=== PATIENT | female | born 1990 | race Caucasian/White ===

== ENCOUNTER 2025-01-08 13:15 | Outpatient (RCR) | payer MEDICAID, SELFPAY ==
[2024-12-25 08:28] VITALS: BP 146/84; PULSE 92; RESP 18; TEMP 36.6; BMI 56.1
--- NOTE | 2024-12-25 11:33 | PCM.WC.HP ---
History of Present Illness Date of Service: 12/25/24 Chief Complaint: Left Breast Abscess History of Wound: Ms. Singletary is a 34-year-old who presents to the wound center due to left breast abscess status post I&D. She reports a recurrence that has been ongoing for at least 3 years. Has never really sought care for it but because this episode seemed really bad, she presented to the emergency room where she had an I&D a few days ago. Following I&D, dressing changes and an antibiotic was recommended. She states that she is unable to do the dressing changes and has no one to really help her with it. History of diabetes mellitus type 2, poor control. Recent A1c was about 8.5 and prior to this, her A1c was over 9. As above, has not sought care for recurrent abscess, blames recurrence on cystic acne. Due to concern for prior significant wound breakdown, poorly controlled diabetes and consider with care at home, she was referred here by her PCP. [facility] Medical History (Updated 12/25/24 @ 11:[address] Violeta Colorado MD) Cystic acne Morbid obesity Surgical wound, non healing Type 2 diabetes mellitus Left breast abscess Home Medications ?Medication ?Instructions ?Recorded ?Last Taken ?Type atorvastatin 20 mg tablet 20 mg PO DAILY 12/25/24 Unknown History cariprazine 3 mg capsule (Vraylar) 3 mg PO DAILY 12/25/24 Unknown History cephalexin 500 mg capsule 500 mg PO 4X/DAY 12/25/24 Unknown History dulaglutide 0.75 mg/0.5 mL 0.75 mg subcut QWEEK 12/25/24 Unknown History subcutaneous pen injector (Trulicity) dulaglutide 1.5 mg/0.5 mL 1.5 mg subcut QWEEK 12/25/24 Unknown History subcutaneous pen injector (Trulicity) dulaglutide 3 mg/0.5 mL 3 mg subcut QWEEK 12/25/24 Unknown History subcutaneous pen injector (Trulicity) insulin glargine 100 unit/mL (3 30 unit subcut QHS 12/25/24 Unknown History mL) subcutaneous pen (Lantus Solostar U-100 Insulin) losartan 100 mg tablet 100 mg PO DAILY 12/25/24 Unknown History metformin 500 mg tablet,extended 1,000 mg PO BID 12/25/24 Unknown History release 24 hr mupirocin 2 % topical ointment 1 applic topical TID 12/25/24 Unknown History omeprazole 40 mg capsule,delayed 40 mg PO DAILY 12/25/24 Unknown History release pantoprazole 40 mg tablet,delayed 40 mg PO BID 12/25/24 Unknown History release sulfamethoxazole 800 2 tab PO Q12.TCU 12/25/24 Unknown History mg-trimethoprim 160 mg tablet Allergy/AdvReac Type Severity Reaction Status Date / Time cephalexin (From Keflex) Allergy Mild Nausea Verified 12/25/24 09:24 duloxetine (From Cymbalta) AdvReac Severe suicidal Verified 12/25/24 08:26 Surgical History (Updated 12/25/24 @ 11:[address] Violeta Colorado MD) Status post incision and drainage ROS Constitutional Constitutional: Denies excessive sweating, fatigue, fever(s), frequent falls, headache(s), lethargy or night sweats Eyes Eyes: Denies bloody eye, discharge from eye(s), double vision, erythema, excessive blinking, exophthalmos or eye pain ENT HEENT: Denies disequillibrium, dysphagia, foreign body in nose, halitosis, headache(s) or hearing loss Cardiovascular Cardiovascular: Denies cold extremities, cyanosis, diaphoresis, dizziness, dyspnea or dyspnea at rest Respiratory/Chest Respiratory/Chest: Denies chest congestion, chest tightness, difficulty clearing secretions, dry cough, dusky skin, dyspnea, hemoptysis or hoarseness Gastrointestinal Gastrointestinal: Denies chewing difficulty, coffee ground emesis, dry heaves, dysphagia or hematemesis Genitourinary Genitourinary: Denies abdominal discomfort, anuria or flank pain Musculoskeletal Musculoskeletal: Denies back pain, extremity pain, muscle cramps, muscle spasms, tingling or tremors Integumentary Integumentary: Reports erythema and wounds; Denies hirsutism, jaundice, pruritus or skin swelling Neurologic Neurologic: Denies abnormal movements, behavior changes, burning sensations, disequilibrium, dizziness, focal weakness or frequent falls Psychiatric Psychiatric: Denies auditory hallucinations, behavioral changes, hallucinations, hopelessness, irritability, memory loss, tactile hallucinations or visual hallucinations Endocrine Endocrinology: Denies change in body appearance, deepening of the voice, excessive sweating, flushing or heat intolerance Hematologic/Lymphatic Hematologic/Lymphatic: Denies easy bleeding or easy bruising Allergic/Immunologic Allergic/Immunologic: Denies itchy eyes, lip swelling, throat swelling, tongue swelling, hives or wheezing Vital Signs Vital Signs Vital Signs: 12/25/24 08:28 Temperature 97.9 F Temperature Source Temporal Pulse Rate 92 Respiratory Rate 18 Blood Pressure 146/84 H Blood Pressure Mean 104 Blood Pressure Source Monitor Blood Pressure Position Sitting Blood Pressure Location Right Arm Oxygen Delivery Method Room Air Weight Weight: 380 lb Body Mass Index (BMI) 56.1 Physical Exam Const alert, oriented x3 and no apparent distress General Appearance: cooperative and well kempt HEENT normocephalic, head/scalp atraumatic and hearing grossly normal bilaterally Eyes EOMs intact bilaterally General Eye: normal appearance of both eyes Neck General: normal visual inspection Resp normal respiratory effort and normal air movement Effort and Inspection: able to speak in complete sentences Cardio regular rate, regular rhythm, S1 normal heart sound and S2 normal heart sound GI soft to palpation and non-tender Inspection: central obesity Skin Wounds: wounds noted size Size: See clinical note, bed granulating well, margins, no odor, open and surrounding erythema Debridement Note Debridement Note Wound debrided: Left Breast Type of Debridement: Excisional debridement Anesthesia Used: 5% Lidocaine Gel Depth: Down to and including healthy tissue and in the subcutaneous layer Percentage of wound debrided: 100 Instrument Used: 3mm curette Tissue Removed: Devitalized tissue Severity: Fat Layer Exposed Amount of bleeding with debridement: Mild Bleeding Controlled with: Pressure Patient tolerated procedure: Patient tolerated procedure well Post-Debridement Measurements and Additional Note: Post-Debridement Measurements/Treatment - Nurse 1 - General Ulcer Assessment Start: 12/25/24 08:20 Freq: Status: Active Protocol: MEMO Activity Type Activity Date Activity User E-sign Co-sign Detail Recorded Client Recorded Date Recorded By Document 12/25/24 08:28 DS [id number] 12/25/24 08:32 DS 12/25/24 08:28 - Today's Visit Information Type of service Initial Visit Arrival Mode Ambulatory Height and Weight Height 5 ft 9 in Weight 380 lb Weight in Pounds 380.0 lbs Weight Measurement Method Estimated by Patient Body Mass Index (BMI) 56.1 BMI Classification Obese Vital Signs Temperature (97.8 F-99.1 F) 97.9 F Temperature Source Temporal Pulse Rate (60-100) 92 Pulse Location Monitor Respiratory Rate (12-18) 18 Respiratory rate source Observation Oxygen Delivery Method Room Air Blood Pressure (90/60-120/80) 146/84 H Blood Pressure Mean 104 Source Monitor Position Sitting Blood Pressure Location Right Arm Pain Scale: 0-10 Numeric Is Patient Pain Free? No left breast -Description Burning -Intensity 6 -Duration (hours) Chronic -Pain Behavior Thrashing -Alleviating Factors/Interventions Will continue to monitor, Emotional Support Communication Assessment Preferred language [employer] Underwriting Consultant Required No Able to Read Yes Able to Write Yes Right Hearing Abillity Normal Left Hearing Abillity Normal Visual Assistive Devices Glasses Teaching Assessment Preferences Verbal,Written, Demonstration Barriers to Learning None Readiness To Learn Excellent Willingness to Engage in Self Management High Activies Readiness to Engage in Self Management High Activities Anxiety Level Anxious Cooperation Cooperative Perception Coherent Interest in Health Problem Asks Questions Education Importance Acknowledges Need Does Patient Smoke tobacco or other Yes substances Is Patient Diabetic Yes Functional Assessment Recent Decline in Ability to Perform Denies Any Declines Culture/Yarsani/Toll Collector Cultural/Yarsani Needs that may affect No Treatment Plan Teaching: Wound Center *Welcome to the Wound Center -Person Taught Patient -Teaching Method Discussion -Response to teaching Verbalize Understanding - Nurse 1 - General Ulcer Measurement Start: 12/25/24 08:20 Freq: Status: Active Protocol: Activity Type Activity Date Activity User E-sign Co-sign Detail Recorded Client Recorded Date Recorded By Document 12/25/24 08:32 DS [id number] 12/25/24 08:44 DS 12/25/24 08:32 Wound Center Nurse 1 #1 left med breast -Current Size (cm) - Length 0.4 -Current Size (cm) - Width 1.0 -Current Size (cm) - Depth 2.6 -Total Square Cm 0.40 -Date of Last Picture (Recall this 12/25/24 field) -Photo Taken Yes -Tunneling No -Undermining/Tunneling No -Circular Undermining No -Exudate Amt Small -Exudate Type Serosanguineous -Wound Margin Distinct, Outline Attached -Texture (Anjana-wound Skin Appearance) Assessed -Moisture (Anjana-wound Skin Appearance) Assessed -Color (Anjana-wound Skin Appearance) Assessed -Temperature (Anjana-wound Skin No Abnormality Appearance) (Pt Warm) -Tenderness on Palpation (Anjana-wound No Skin Appearance) -Ulcer Cleansing Soap and Water -Foul Odor after Cleansing No -Anesthetic Used 5% Lidocaine Gel - Nurse 2 - General Ulcer CM Notes Start: 12/25/24 08:20 Freq: Status: Active Protocol: Activity Type Activity Date Activity User E-sign Co-sign Detail Recorded Client Recorded Date Recorded By Document 12/25/24 09:09 [id number] 12/25/24 09:16 12/25/24 09:09 Wound Center Nurse 2 -Time 09:09 -Correct Patient Yes -Correct Side, Site, Position Yes -Correct Procedure Yes -Procedure Performed Yes -Type of Procedure Debridement -Clinical Debridement Subcutaneous -Tissue Removed Subcutaneous -Post Debridement (cm) - Length 0.3 -Post Debridement (cm) - Width 1.2 -Post Debridement (cm) - Depth 3.0 -Total Square (Post) (cm) 0.36 -Area of Debridement (cm) - Length 0.3 -Area of Debridement (cm) - Width 1.2 -Total Square (Area) (cm) 0.36 -Tunneling No -Undermining/Tunneling No -Circular Undermining No -Wound/Ulcer Outcome Not Healed -Ulcer Cleansing Rinsed/ Irrigated with Saline -Foul Odor after Cleansing No -Bioengineered Tissue No -Bleeding Controlled with Pressure -Treatment Response Procedure Tolerated Well -Offloading No -Debridement - Subq, 1st 20sq cm Yes Pain Scale: 0-10 Numeric Is Patient Pain Free? Yes - Nurse 3 - General Ulcer D/C NN Start: 12/25/24 08:20 Freq: Status: Active Protocol: Activity Type Activity Date Activity User E-sign Co-sign Detail Recorded Client Recorded Date Recorded By Document 12/25/24 09:40 [id number] 12/25/24 09:41 12/25/24 09:40 Wound Care Center Nurse 3 #1 left med breast -Ulcer Cleansing Rinsed/ Irrigated with Saline -Primary Dressing Applied Nugauze, Iodoform 1in -Primary Dressing Covered/Secured with Dry Gauze, Secured with Tape -Nugauze, Iodoform 1in 1 Treatment Response Procedure Tolerated Well Pain Scale: 0-10 Numeric Is Patient Pain Free? Yes WC - Visit Discharge Discharge Condition Stable Ambulatory Status Ambulatory Transportation Private Auto Medication Reconcilliation completed & No provided to patient/care provider Clinical Summary of Care Provided Yes Charges/Coding Visit Charges Office Visits / Consults: [id number] OV L3 New 30min Procedures Integumentary [id number]: [id number] Gladys subq tissue 20 sq cm/< Assessment/Plan Assessment/Plan (1) Status post incision and drainage: CODE(S): Z98.890 - Other specified postprocedural states (2) Left breast abscess: CODE(S): N61.1 - Abscess of the breast and nipple (3) Type 2 diabetes mellitus: CODE(S): E11.9 - Type 2 diabetes mellitus without complications (4) Surgical wound, non healing: CODE(S): T81.89XA - Other complications of procedures, not elsewhere classified, initial encounter (5) Morbid obesity: CODE(S): E66.01 - Morbid (severe) obesity due to excess calories (6) Cystic acne: CODE(S): L70.0 - Acne vulgaris PLAN: Plan Debridement done as documented above, procedure was well-tolerated. Status post recent I&D at the emergency room. Had packing to the area and antibiotics prescribed however, she states that she did not do any dressing change at home because she is unable to. History of significant surgical wound breakdown/abscess following a section a few years ago. Had to have a wound VAC. Due to her comorbidities, poorly controlled diabetes and recurrence, primary care recommended wound care. She states that she is working on her diabetes control. Not homebound. For now, iodoform daily to twice daily depending on drainage, cover with foam dressing. Due to depth, difficulty with wound changes and drainage, I believe she would benefit from a wound VAC. Application started. Optimal diabetes control strongly recommended. Due to recurrence, I believe she would benefit from evaluation by general surgery or plastic surgery, she was advised to speak with a primary care physician. She voiced understanding. Optimize protein intake also discussed. Her questions were answered and she was advised to let us know if she had any further questions or concerns. Follow-up in a week or sooner if needed. This note was generated with [employer] software. It may contain incorrect words, spelling, and punctuation that were not noted in checking the note before signing.
--- NOTE | 2024-12-26 08:20 | WC ---
PHOTO 12/25/24 LEFT BREAST
[2025-01-01 10:59] VITALS: BP 143/86; PULSE 84; RESP 18; TEMP 36.1; BMI 56.1
--- NOTE | 2025-01-01 13:42 | PCM.WC.PN ---
History of Present Illness Date of Service: 01/01/25 Chief Complaint: Left Breast Abscess History of Wound: Ms. Singletary is a 34-year-old who presents to the wound center due to left breast abscess status post I&D. She reports a recurrence that has been ongoing for at least 3 years. Has never really sought care for it but because this episode seemed really bad, she presented to the emergency room where she had an I&D a few days ago. Following I&D, dressing changes and an antibiotic was recommended. She states that she is unable to do the dressing changes and has no one to really help her with it. History of diabetes mellitus type 2, poor control. Recent A1c was about 8.5 and prior to this, her A1c was over 9. As above, has not sought care for recurrent abscess, blames recurrence on cystic acne. Due to concern for prior significant wound breakdown, poorly controlled diabetes and consider with care at home, she was referred here by her PCP. Progress of Wound: No acute concerns reported at this time. Since her last visit, she states that her mother has been helping with dressing changes daily. Her mother states that she is needing less to pack the area. Patient states that she has significantly increased her protein intake and has been working to better control her blood glucose readings. Average readings have been down 100 points since her last visit. Objective Data Objective Data Vital Signs: Vital Signs Temp Pulse Resp BP O2 Del Method 97 F L 84 18 143/86 H Room Air 01/01/25 10:59 01/01/25 10:59 01/01/25 10:59 01/01/25 10:59 01/01/25 10:59 Oxygen Delivery Method Room Air Weight: 380 lb Body Mass Index (BMI) 56.1 Charges/Coding Procedures Integumentary 111xxx-113xx: [id number] Gladys subq tissue 20 sq cm/< Physical Exam Const alert, oriented x3 and no apparent distress General Appearance: cooperative and well kempt HEENT normocephalic, head/scalp atraumatic and hearing grossly normal bilaterally Eyes EOMs intact bilaterally General Eye: normal appearance of both eyes Neck General: normal visual inspection Resp normal respiratory effort Effort and Inspection: able to speak in complete sentences GI Inspection: central obesity Skin Wounds: wounds noted size Size: See clinical note, bed granulating well, margins, no odor, open and surrounding erythema Debridement Note Debridement Note Wound debrided: Left breast Type of Debridement: Excisional debridement Anesthesia Used: 4% Lidocaine Solution Depth: Down to and including healthy tissue and in the subcutaneous layer Percentage of wound debrided: 100 Instrument Used: 3mm curette Tissue Removed: Devitalized tissue Severity: Fat Layer Exposed Amount of bleeding with debridement: Mild Bleeding Controlled with: Pressure Patient tolerated procedure: Patient tolerated procedure well Post-Debridement Measurements and Additional Note: Post-Debridement Measurements/Treatment WC - Nurse 1 - General Ulcer Assessment Start: 12/25/24 08:20 Freq: Status: Active Protocol: MEMO Activity Type Activity Date Activity User E-sign Co-sign Detail Recorded Client Recorded Date Recorded By Document 12/25/24 08:28 DS [id number] 12/25/24 08:32 DS Document 01/01/25 10:59 OH [id number] 01/01/25 11:13 MT 12/25/24 01/01/25 08:28 10:59 - Today's Visit Information Type of service Initial Visit Follow-up Visit (Physician/[employer] ) Arrival Mode Ambulatory Ambulatory Accompanied by mom Patient Identification Verified (Name & Yes ) Safety Precautions Fall Prevention Blood Sugar Stated by Patient Height and Weight Height 5 ft 9 in Weight 380 lb Weight in Pounds 380.0 lbs Weight Measurement Method Estimated by Patient Body Mass Index (BMI) 56.1 56.1 BMI Classification Obese Obese Vital Signs Temperature (97.8 F-99.1 F) 97.9 F 97 F L Temperature Source Temporal Temporal Pulse Rate (60-100) 92 84 Pulse Location Monitor Monitor Respiratory Rate (12-18) 18 18 Respiratory rate source Observation Observation Oxygen Delivery Method Room Air Room Air Blood Pressure (90/60-120/80) 146/84 H 143/86 H Blood Pressure Mean (mm Hg) 104 105 Source Monitor Monitor Position Sitting Sitting Blood Pressure Location Right Arm Right Arm History Since Last Visit- (Skip if this is Patient's initial visit) Has dressing in place as prescribed Yes Has compression in place as prescribed Yes Has offloadiing in place as prescribed Yes Experienced any changes in pain level or Yes management Left Footwear Regular Shoe Right Footwear Regular Shoe Pain Scale: 0-10 Numeric Is Patient Pain Free? No Yes left breast -Description Burning -Intensity 6 -Duration (hours) Chronic -Pain Behavior Thrashing -Alleviating Factors/Interventions Will continue to monitor, Emotional Support Communication Assessment Preferred language Lithuanian Senior Security Engineer Required No Able to Read Yes Able to Write Yes Right Hearing Abillity Normal Left Hearing Abillity Normal Visual Assistive Devices Glasses Teaching Assessment Preferences Verbal,Written, Demonstration Barriers to Learning None Readiness To Learn Excellent Willingness to Engage in Self Management High Activies Readiness to Engage in Self Management High Activities Anxiety Level Anxious Cooperation Cooperative Perception Coherent Interest in Health Problem Asks Questions Education Importance Acknowledges Need Does Patient Smoke tobacco or other Yes substances Is Patient Diabetic Yes Functional Assessment Recent Decline in Ability to Perform Denies Any Declines Culture/Catholic/Correctional Casework Specialist Cultural/Catholic Needs that may affect No Treatment Plan Teaching: Wound Center *Welcome to the Wound Center -Person Taught Patient -Teaching Method Discussion -Response to teaching Verbalize Understanding WC - Nurse 1 - General Ulcer Measurement Start: 12/25/24 08:20 Freq: Status: Active Protocol: Activity Type Activity Date Activity User E-sign Co-sign Detail Recorded Client Recorded Date Recorded By Document 12/25/24 08:32 DS [id number] 12/25/24 08:44 DS Document 01/01/25 10:59 OH [id number] 01/01/25 11:13 OH 12/25/24 01/01/25 08:32 10:59 Wound Center Nurse 1 #1 left med breast -Current Size (cm) - Length 0.4 0.3 -Current Size (cm) - Width 1.0 0.5 -Current Size (cm) - Depth 2.6 2.2 -Total Square Cm 0.40 0.15 -Date of Last Picture (Recall this 12/25/24 field) -Photo Taken Yes No -Tunneling No No -Undermining/Tunneling No No -Circular Undermining No No -Exudate Amt Small Medium -Exudate Type Serosanguineous Sanguineous -Wound Margin Distinct, Flat & Intact Outline Attached -Granulation Amt Large (67-100%) -Granulation Quality Red -Slough/Fibrin No -Texture (Anjana-wound Skin Appearance) Assessed Assessed -Moisture (Anjana-wound Skin Appearance) Assessed Assessed -Color (Anjana-wound Skin Appearance) Assessed Assessed -Temperature (Anjana-wound Skin No Abnormality No Abnormality Appearance) (Pt Warm) (Pt Warm) -Tenderness on Palpation (Anjana-wound No No Skin Appearance) -Ulcer Cleansing Soap and Water Soap and Water -Foul Odor after Cleansing No No -Anesthetic Used 5% Lidocaine 5% Lidocaine Gel Gel Lower Limb Edema Present NA WC - Nurse 2 - General Ulcer CM Notes Start: 12/25/24 08:20 Freq: Status: Active Protocol: Activity Type Activity Date Activity User E-sign Co-sign Detail Recorded Client Recorded Date Recorded By Document 12/25/24 09:09 GM [id number] 12/25/24 09:16 GM Document 01/01/25 12:08 GM [id number] 01/01/25 12:10 GM Edit Result 01/01/25 12:08 GM (1) [id number] 01/01/25 12:13 GM (1) #1 left med breast - Post Debridement (cm) - Length => 0.2 - Post Debridement (cm) - Width => 0.7 - Post Debridement (cm) - Depth => 2.0 - Total Square (Post) (cm) => 0.14 - Area of Debridement (cm) - Length => 0.2 - Area of Debridement (cm) - Width => 0.7 - Total Square (Area) (cm) => 0.14 12/25/24 01/01/25 09:09 12:08 Wound Center Nurse 2 #1 left med breast -Time 09:09 12:08 -Correct Patient Yes Yes -Correct Side, Site, Position Yes Yes -Correct Procedure Yes Yes -Procedure Performed Yes Yes -Type of Procedure Debridement Debridement -Clinical Debridement Subcutaneous Subcutaneous -Tissue Removed Subcutaneous Subcutaneous -Post Debridement (cm) - Length 0.3 0.2 -Post Debridement (cm) - Width 1.2 0.7 -Post Debridement (cm) - Depth 3.0 2.0 -Total Square (Post) (cm) 0.36 0.14 -Area of Debridement (cm) - Length 0.3 0.2 -Area of Debridement (cm) - Width 1.2 0.7 -Total Square (Area) (cm) 0.36 0.14 -Tunneling No No -Undermining/Tunneling No No -Circular Undermining No No -Wound/Ulcer Outcome Not Healed Not Healed -Ulcer Cleansing Rinsed/ Rinsed/ Irrigated with Irrigated with Saline Saline -Foul Odor after Cleansing No No -Bioengineered Tissue No No -Bleeding Controlled with Pressure Pressure -Treatment Response Procedure Procedure Tolerated Well Tolerated Well -Offloading No No -Debridement - Subq, 1st 20sq cm Yes Yes Pain Scale: 0-10 Numeric Is Patient Pain Free? Yes Yes WC - Nurse 3 - General Ulcer D/C NN Start: 12/25/24 08:20 Freq: Status: Active Protocol: Activity Type Activity Date Activity User E-sign Co-sign Detail Recorded Client Recorded Date Recorded By Document 12/25/24 09:40 RB [id number] 12/25/24 09:41 RB Document 01/01/25 13:40 KW [id number] 01/01/25 13:41 KW 12/25/24 01/01/25 09:40 13:40 Wound Care Center Nurse 3 #1 left med breast -Ulcer Cleansing Rinsed/ Irrigated with Saline -Negative Pressure Wound Therapy Start -Pieces of Black Foam Inserted 1 -NPWT Application Charge NPWT & Debridement (nc ) -Foam Supply Charges Black Foam Small -Black Foam, Small 1 -Setting (mmHg) 125 -Negative Pressure is Continuous -Primary Dressing Applied Nugauze, Iodoform 1in -Primary Dressing Covered/Secured with Dry Gauze, Secured with Tape -Nugauze, Iodoform 1in 1 Treatment Response Procedure Tolerated Well Pain Scale: 0-10 Numeric Is Patient Pain Free? Yes Yes WC - Visit Discharge Discharge Condition Stable Stable Ambulatory Status Ambulatory Ambulatory Transportation Private Auto Private Auto Medication Reconcilliation completed & No No provided to patient/care provider Clinical Summary of Care Provided Yes Yes Assessment/Plan Assessment/Plan (1) Status post incision and drainage: CODE(S): Z98.890 - Other specified postprocedural states (2) Left breast abscess: CODE(S): N61.1 - Abscess of the breast and nipple (3) Type 2 diabetes mellitus: CODE(S): E11.9 - Type 2 diabetes mellitus without complications (4) Surgical wound, non healing: CODE(S): T81.89XA - Other complications of procedures, not elsewhere classified, initial encounter (5) Morbid obesity: CODE(S): E66.01 - Morbid (severe) obesity due to excess calories (6) Cystic acne: CODE(S): L70.0 - Acne vulgaris PLAN: Plan Debridement done as documented above, procedure was well-tolerated. Good improvement noted since her last visit. Has been doing iodoform packing/changing daily with the help of her mother. Wound VAC now available and due to her prior difficulty with wound healing/breakdown and good success with a wound VAC, she would like to have the wound VAC applied despite good healing in the last week. Okay to attempt. Start at 125 mmHg. Continue optimal diabetes control and adequate protein intake. Her questions were answered and she was advised to let us know if she had any further questions or concerns. Follow-up in a week for courtesy visit and in 2 weeks with me This note was generated with [employer] dictation software. It may contain incorrect words, spelling, and punctuation that were not noted in checking the note before signing.
[2025-01-05 13:26] VITALS: BP 143/91; PULSE 94; RESP 18; TEMP 36.4; BMI 56.1
[2025-01-08 13:23] VITALS: BP 127/86; PULSE 91; TEMP 36.5; BMI 56.1
--- NOTE | 2025-01-08 14:22 | PN.PCM_ITS ---
History of Present Illness Date of Service: 01/08/25 Chief Complaint: Left Breast Abscess History of Wound: Ms. Singletary is a 34-year-old who presents to the wound center due to left breast abscess status post I&D. She reports a recurrence that has been ongoing for at least 3 years. Has never really sought care for it but because this episode seemed really bad, she presented to the emergency room where she had an I&D a few days ago. Following I&D, dressing changes and an antibiotic was recommended. She states that she is unable to do the dressing changes and has no one to really help her with it. History of diabetes mellitus type 2, poor control. Recent A1c was about 8.5 and prior to this, her A1c was over 9. As above, has not sought care for recurrent abscess, blames recurrence on cystic acne. Due to concern for prior significant wound breakdown, poorly controlled diabetes and consider with care at home, she was referred here by her PCP. Progress of Wound: I saw patient today as a courtesy visit for Dr. [place]. Carol reports no acute concerns. She had a wound vac placed last Sunday, it was removed this Sunday due to skin irritation from the vac dressing; she reports she had some blistering. The blisters are healing up well. Since the vac was removed she has been back to packing with iodoform. She reports packing has become increasingly difficult, it just falls out. She has continued to maintain improved glycemic control, sugars are now typically mid-100s which is about 100 points less than previous. She also has been very conscientious of increasing protein intake. Objective Data Objective Data Vital Signs: Vital Signs Temp Pulse Resp BP O2 Del Method 97.7 F L 91 18 127/86 H Room Air 01/08/25 13:23 01/08/25 13:23 01/05/25 13:26 01/08/25 13:23 01/05/25 13:26 Oxygen Delivery Method Room Air Weight: 380 lb Body Mass Index (BMI) 56.1 Charges/Coding Visit Charges Office Visits / Consults: 48925 OV L2 New 15min Physical Exam Const alert, oriented x3 and no apparent distress General Appearance: cooperative and well kempt HEENT normocephalic, head/scalp atraumatic and hearing grossly normal bilaterally Eyes EOMs intact bilaterally General Eye: normal appearance of both eyes Neck General: normal visual inspection Resp normal respiratory effort Effort and Inspection: able to speak in complete sentences GI Inspection: central obesity Skin Wounds: wounds noted Wound Narrative: L breast ulceration which is significantly improved in depth, no significant slough or bioburden, wound base is pink; there is no surrounding erythema/warmth/induration/fluctuance/foul odor. Resolving dermatitic changes in the area of the prior vac dressing Debridement Note Debridement Note No debridement was completed: No debridement was completed today Post-Debridement Measurements and Additional Note: Post-Debridement Measurements/Treatment - Nurse 1 - General Ulcer Assessment Start: 12/25/24 08:20 Freq: Status: Active Protocol: WC.[place] Activity Type Activity Date Activity User E-sign Co-sign Detail Recorded Client Recorded Date Recorded By Document 12/25/24 08:28 DS [id number] 12/25/24 08:32 DS Document 01/01/25 10:59 MT [id number] 01/01/25 11:13 MT Document 01/05/25 13:26 KW [id number] 01/05/25 13:56 KW Document 01/08/25 13:23 BMF [id number] 01/08/25 13:32 BMF 12/25/24 01/01/25 01/05/25 08:28 10:59 13:26 - Today's Visit Information Type of service Initial Visit Follow-up Visit Nurse-only (Physician/SENIOR FINANCE MANAGER Visit ) Arrival Mode Ambulatory Ambulatory Ambulatory Transfer Assistance Accompanied by mom Patient Identification Verified (Name & Yes Yes ) Patient Requires Transmission-Based Precautions Safety Precautions Fall Prevention Blood Sugar Stated by Patient Height and Weight Height 5 ft 9 in Weight 380 lb Weight in Pounds 380.0 lbs Weight Measurement Method Estimated by Patient Body Mass Index (BMI) 56.1 56.1 56.1 BMI Classification Obese Obese Obese Vital Signs Temperature (97.8 F-99.1 F) 97.9 F 97 F L 97.5 F L Temperature Source Temporal Temporal Temporal Pulse Rate (60-100) 92 84 94 Pulse Location Monitor Monitor Monitor Respiratory Rate (12-18) 18 18 18 Respiratory rate source Observation Observation Observation Oxygen Delivery Method Room Air Room Air Room Air Blood Pressure (90/60-120/80) 146/84 H 143/86 H 143/91 H Blood Pressure Mean (mm Hg) 104 105 108 Source Monitor Monitor Monitor Position Sitting Sitting Sitting Blood Pressure Location Right Arm Right Arm Left Arm History Since Last Visit- (Skip if this is Patient's initial visit) Have you changed medications since your No last visit? Any new allergies or adverse reactions No Had a fall/change in ADL's that may No increase risk of falls Signs or symptoms of abuse and/or No neglect since last visit Have you been in the hospital since your No last visit? Has dressing in place as prescribed Yes Yes Has compression in place as prescribed Yes N/A Has offloadiing in place as prescribed Yes N/A Experienced any changes in pain level or Yes No management Left Footwear Regular Shoe Regular Shoe Right Footwear Regular Shoe Regular Shoe Pain Scale: 0-10 Numeric Is Patient Pain Free? No Yes Yes left breast -Description Burning -Intensity 6 -Duration (hours) Chronic -Pain Behavior Thrashing -Alleviating Factors/Interventions Will continue to monitor, Emotional Support Communication Assessment Preferred language [place] Site Medical Director Required No Able to Read Yes Able to Write Yes Right Hearing Abillity Normal Left Hearing Abillity Normal Visual Assistive Devices Glasses Teaching Assessment Preferences Verbal,Written, Demonstration Barriers to Learning None Readiness To Learn Excellent Willingness to Engage in Self Management High Activies Readiness to Engage in Self Management High Activities Anxiety Level Anxious Cooperation Cooperative Perception Coherent Interest in Health Problem Asks Questions Education Importance Acknowledges Need Does Patient Smoke tobacco or other Yes substances Is Patient Diabetic Yes Functional Assessment Recent Decline in Ability to Perform Denies Any Declines Culture/Holiness/Advertising Campaign Manager Cultural/Holiness Needs that may affect No Treatment Plan Teaching: Wound Center *Welcome to the Wound Center -Person Taught Patient -Teaching Method Discussion -Response to teaching Verbalize Understanding 01/08/25 13:23 WC - Today's Visit Information Type of service Follow-up Visit (Physician/SENIOR FINANCE MANAGER ) Arrival Mode Ambulatory Transfer Assistance None Accompanied by Patient Identification Verified (Name & Yes ) Patient Requires Transmission-Based No Precautions Safety Precautions Blood Sugar Height and Weight Height Weight Weight in Pounds Weight Measurement Method Body Mass Index (BMI) 56.1 BMI Classification Obese Vital Signs Temperature (97.8 F-99.1 F) 97.7 F L Temperature Source Temporal Pulse Rate (60-100) 91 Pulse Location Monitor Respiratory Rate (12-18) Respiratory rate source Oxygen Delivery Method Blood Pressure (90/60-120/80) 127/86 H Blood Pressure Mean (mm Hg) 99 Source Monitor Position Sitting Blood Pressure Location Right Arm History Since Last Visit- (Skip if this is Patient's initial visit) Have you changed medications since your No last visit? Any new allergies or adverse reactions No Had a fall/change in ADL's that may No increase risk of falls Signs or symptoms of abuse and/or No neglect since last visit Have you been in the hospital since your No last visit? Has dressing in place as prescribed No Has compression in place as prescribed N/A Has offloadiing in place as prescribed N/A Experienced any changes in pain level or No management Left Footwear Regular Shoe Right Footwear Regular Shoe Pain Scale: 0-10 Numeric Is Patient Pain Free? Yes left breast -Description -Intensity -Duration (hours) -Pain Behavior -Alleviating Factors/Interventions Communication Assessment Preferred foreign languages department chair Required Able to Read Able to Write Right Hearing Abillity Left Hearing Abillity Visual Assistive Devices Teaching Assessment Preferences Barriers to Learning Readiness To Learn Willingness to Engage in Self Management Activies Readiness to Engage in Self Management Activities Anxiety Level Cooperation Perception Interest in Health Problem Education Importance Does Patient Smoke tobacco or other substances Is Patient Diabetic Functional Assessment Recent Decline in Ability to Perform Culture/Holiness/Advertising Campaign Manager Cultural/Holiness Needs that may affect Treatment Plan Teaching: Wound Center *Welcome to the Wound Center -Person Taught -Teaching Method -Response to teaching WC - Nurse 1 - General Ulcer Measurement Start: 12/25/24 08:20 Freq: Status: Active Protocol: Activity Type Activity Date Activity User E-sign Co-sign Detail Recorded Client Recorded Date Recorded By Document 12/25/24 08:32 DS [id number] 12/25/24 08:44 DS Document 01/01/25 10:59 OK [id number] 01/01/25 11:13 OK Document 01/08/25 13:23 [facility] [id number] 01/08/25 13:32 [facility] 12/25/24 01/01/25 01/08/25 08:32 10:59 13:23 Wound Center Nurse 1 #1 left med breast -Combined with other wound No -Current Size (cm) - Length 0.4 0.3 0.3 -Current Size (cm) - Width 1.0 0.5 0.3 -Current Size (cm) - Depth 2.6 2.2 0.3 -Total Square Cm 0.40 0.15 0.09 -Date of Last Picture (Recall this 12/25/24 field) -Photo Taken Yes No -Epithelialization Small 1-33% -Tunneling No No No -Undermining/Tunneling No No No -Circular Undermining No No No -Exudate Amt Small Medium Medium -Exudate Type Serosanguineous Sanguineous Serosanguineous -Wound Margin Distinct, Flat & Intact Distinct, Outline Outline Attached Attached -Granulation Amt Large (67-100%) Large (67-100%) -Granulation Quality Red Red -Slough/Fibrin No No -Necrosis Amt None Present (0 %) -Texture (Anjana-wound Skin Appearance) Assessed Assessed Assessed, Scarring -Moisture (Anjana-wound Skin Appearance) Assessed Assessed Assessed -Color (Anjana-wound Skin Appearance) Assessed Assessed Assessed -Temperature (Anjana-wound Skin No Abnormality No Abnormality No Abnormality Appearance) (Pt Warm) (Pt Warm) (Pt Warm) -Tenderness on Palpation (Anjana-wound No No No Skin Appearance) -Ulcer Cleansing Soap and Water Soap and Water Rinsed/ Irrigated with Saline -Foul Odor after Cleansing No No No -Anesthetic Used 5% Lidocaine 5% Lidocaine 5% Lidocaine Gel Gel Gel Lower Limb Edema Present NA WC - Nurse 2 - General Ulcer CM Notes Start: 12/25/24 08:20 Freq: Status: Active Protocol: Activity Type Activity Date Activity User E-sign Co-sign Detail Recorded Client Recorded Date Recorded By Document 12/25/24 09:09 [id number] 12/25/24 09:16 GM Document 01/01/25 12:08 [id number] 01/01/25 12:10 GM Edit Result 01/01/25 12:08 (1) [id number] 01/01/25 12:13 GM Document 01/08/25 13:55 [id number] 01/08/25 14:01 (1) #1 left med breast - Post Debridement (cm) - Length => 0.2 - Post Debridement (cm) - Width => 0.7 - Post Debridement (cm) - Depth => 2.0 - Total Square (Post) (cm) => 0.14 - Area of Debridement (cm) - Length => 0.2 - Area of Debridement (cm) - Width => 0.7 - Total Square (Area) (cm) => 0.14 12/25/24 01/01/2501/08/25 09:09 12:08 13:55 Wound Center Nurse 2 #1 left med breast -Time 09:09 12:08 13:57 -Correct Patient Yes Yes Yes -Correct Side, Site, Position Yes Yes Yes -Correct Procedure Yes Yes No -Procedure Performed Yes Yes No -Type of Procedure Debridement Debridement -Clinical Debridement Subcutaneous Subcutaneous -Tissue Removed Subcutaneous Subcutaneous -Post Debridement (cm) - Length 0.3 0.2 0.3 -Post Debridement (cm) - Width 1.2 0.7 0.4 -Post Debridement (cm) - Depth 3.0 2.0 0.3 -Total Square (Post) (cm) 0.36 0.14 0.12 -Area of Debridement (cm) - Length 0.3 0.2 -Area of Debridement (cm) - Width 1.2 0.7 -Total Square (Area) (cm) 0.36 0.14 -Tunneling No No No -Undermining/Tunneling No No No -Circular Undermining No No No -Wound/Ulcer Outcome Not Healed Not Healed Not Healed -Ulcer Cleansing Rinsed/ Rinsed/ Irrigated with Irrigated with Saline Saline -Foul Odor after Cleansing No No -Bioengineered Tissue No No -Bleeding Controlled with Pressure Pressure NA -Treatment Response Procedure Procedure Tolerated Well Tolerated Well -Offloading No No No -Debridement - Subq, 1st 20sq cm Yes Yes Pain Scale: 0-10 Numeric Is Patient Pain Free? Yes Yes Yes WC - Nurse 3 - General Ulcer D/C NN Start: 12/25/24 08:20 Freq: Status: Active Protocol: Activity Type Activity Date Activity User E-sign Co-sign Detail Recorded Client Recorded Date Recorded By Document 12/25/24 09:40 RB [id number] 12/25/24 09:41 RB Document 01/01/25 13:40 KW [id number] 01/01/25 13:41 KW Document 01/05/25 13:26 KW [id number] 01/05/25 13:56 KW Document 01/08/25 14:10 [facility] [id number] 01/08/25 14:11 [facility] 12/25/24 01/01/25 01/05/25 09:40 13:40 13:26 Wound Care Center Nurse 3 #1 left med breast -Ulcer Cleansing Rinsed/ Soap and Water Irrigated with Saline -Foul Odor after Cleansing -Negative Pressure Wound Therapy Start -Pieces of Black Foam Inserted 1 -NPWT Application Charge NPWT & Debridement (nc ) -Foam Supply Charges Black Foam Small -Black Foam, Small 1 -Setting (mmHg) 125 -Negative Pressure is Continuous -Primary Dressing Applied Nugauze, Nugauze, Iodoform 1in Iodoform 1in -Primary Dressing Covered/Secured with Dry Gauze, Dry Gauze, Secured with Secured with Tape Tape -Nugauze, Iodoform 1in 1 1 -Promogran More Matter -Wound Comment(s) PT PRESENTED WITH BLISTERING AND PAIN UNDERNEATH THE TEGADERM DRAPIJNG OF WOUND VAC, VAC HOLIDAY WAS PUT IN PLACE BY PROVIDER. Treatment Response Procedure Tolerated Well Pain Scale: 0-10 Numeric Is Patient Pain Free? Yes Yes Yes WC - Visit Discharge Discharge Condition Stable Stable Stable Ambulatory Status Ambulatory Ambulatory Ambulatory Transportation Private Auto Private Auto Private Auto Medication Reconcilliation completed & No No No provided to patient/care provider Clinical Summary of Care Provided Yes Yes Yes 01/08/25 14:10 Wound Care Center Nurse 3 #1 left med breast -Ulcer Cleansing Rinsed/ Irrigated with Saline -Foul Odor after Cleansing No -Negative Pressure Wound Therapy -Pieces of Black Foam Inserted -NPWT Application Charge -Foam Supply Charges -Black Foam, Small -Setting (mmHg) -Negative Pressure is -Primary Dressing Applied Promogran More Matter -Primary Dressing Covered/Secured with Dry Gauze, Secured with Tape -Nugauze, Iodoform 1in -Promogran More Matter 1 -Wound Comment(s) Treatment Response Procedure Tolerated Well Pain Scale: 0-10 Numeric Is Patient Pain Free? Yes WC - Visit Discharge Discharge Condition Stable Ambulatory Status Ambulatory Transportation Private Auto Medication Reconcilliation completed & provided to patient/care provider Clinical Summary of Care Provided Assessment/Plan Assessment/Plan (1) Status post incision and drainage: CODE(S): Z98.890 - Other specified postprocedural states (2) Left breast abscess: CODE(S): N61.1 - Abscess of the breast and nipple (3) Type 2 diabetes mellitus: CODE(S): E11.9 - Type 2 diabetes mellitus without complications (4) Surgical wound, non healing: CODE(S): T81.89XA - Other complications of procedures, not elsewhere classified, initial encounter (5) Morbid obesity: CODE(S): E66.01 - Morbid (severe) obesity due to excess calories (6) Cystic acne: CODE(S): L70.0 - Acne vulgaris PLAN: Plan No debridement was necessary this week. The wound has made great improvement with the short course of negative pressure vac therapy. At this time, will discontinue packing as there is now minimal depth. For wound care (1) Cleanse the area with Hibiclens, pat dry (2) Apply More, lightly moistened (3) Cover with dry gauze dressing or foam border dressing (4) Change daily, more often as needed to keep clean and dry. OK to shower and allow soap and water to rinse over the area, be sure to dry well after and change to a clean dressing after. No submerging the area in water such as baths, swimming, hot tubs, etc. Continue with dietary changes to support improved glycemic control and increased protein intake. She will return in [address] [place].
== END 2025-01-12 23:59 | disposition home or self-care (01) ==
LOC: WC 13:15
PROVIDERS: Visit Provider Internal Medicine
DX: N61.1 Abscess of the breast and nipple (principal); E66.01 Morbid (severe) obesity due to excess calories; Z68.43 Body mass index [BMI] 50.0-59.9, adult; E11.65 Type 2 diabetes mellitus with hyperglycemia; Z79.4 Long term (current) use of insulin; T81.89XA Other complications of procedures, not elsewhere classified, initial encounter; L70.0 Acne vulgaris; Y83.8 Other surgical procedures as the cause of abnormal reaction of the patient, or of later complication, without mention of misadventure at the time of the procedure; Z79.899 Other long term (current) drug therapy; Z79.85 Long-term (current) use of injectable non-insulin antidiabetic drugs
CPT/HCPCS: 11042; 99203; 99213; G0463

== ENCOUNTER 2025-01-15 10:09 | Outpatient (RCR) | payer MEDICAID, SELFPAY ==
[2025-01-15 10:38] VITALS: BP 144/95; PULSE 87; RESP 18; TEMP 36.3
--- NOTE | 2025-01-15 13:33 | PCM.WC.PN ---
History of Present Illness Date of Service: 01/15/25 Chief Complaint: Left Breast Abscess History of Wound: Ms. Singletary is a 34-year-old who presents to the wound center due to left breast abscess status post I&D. She reports a recurrence that has been ongoing for at least 3 years. Has never really sought care for it but because this episode seemed really bad, she presented to the emergency room where she had an I&D a few days ago. Following I&D, dressing changes and an antibiotic was recommended. She states that she is unable to do the dressing changes and has no one to really help her with it. History of diabetes mellitus type 2, poor control. Recent A1c was about 8.5 and prior to this, her A1c was over 9. As above, has not sought care for recurrent abscess, blames recurrence on cystic acne. Due to concern for prior significant wound breakdown, poorly controlled diabetes and consider with care at home, she was referred here by her PCP. Progress of Wound: Healed, no new concerns reported at this time. Objective Data Objective Data Vital Signs: Vital Signs Temp Pulse Resp BP 97.3 F L 87 18 144/95 H 01/15/25 10:38 01/15/25 10:38 01/15/25 10:38 01/15/25 10:38 Charges/Coding Visit Charges Office Visits / Consults: 13479 OV L3 Est 20min Physical Exam Const alert, oriented x3 and no apparent distress General Appearance: cooperative and well kempt HEENT normocephalic, head/scalp atraumatic and hearing grossly normal bilaterally Eyes EOMs intact bilaterally General Eye: normal appearance of both eyes Neck General: normal visual inspection Resp normal respiratory effort Effort and Inspection: able to speak in complete sentences GI Inspection: central obesity Debridement Note Debridement Note Post-Debridement Measurements and Additional Note: Post-Debridement Measurements/Treatment FARNAZ - Nurse 1 - General Ulcer Assessment Start: 01/13/25 14:32 Freq: Status: Active Protocol: MEMO Activity Type Activity Date Activity User E-sign Co-sign Detail Recorded Client Recorded Date Recorded By Document 01/15/25 10:38 SANDOR [id number] 01/15/25 10:39 RB 01/15/25 10:38 FARNAZ - Today's Visit Information Type of service Follow-up Visit (Physician/ELEMENTARY SCHOOL MUSIC TEACHER ) Arrival Mode Ambulatory Transfer Assistance None Patient Identification Verified (Name & Yes ) Patient Requires Transmission-Based No Precautions Vital Signs Temperature (97.8 F-99.1 F) 97.3 F L Temperature Source Temporal Pulse Rate (60-100) 87 Pulse Location Monitor Respiratory Rate (12-18) 18 Respiratory rate source Observation Blood Pressure (90/60-120/80) 144/95 H Blood Pressure Mean (mm Hg) 111 Source Monitor Position Semi-Fowlers Blood Pressure Location Left Arm History Since Last Visit- (Skip if this is Patient's initial visit) Have you changed medications since your No last visit? Any new allergies or adverse reactions No Had a fall/change in ADL's that may No increase risk of falls Signs or symptoms of abuse and/or No neglect since last visit Have you been in the hospital since your No last visit? Has dressing in place as prescribed Yes Has compression in place as prescribed Yes Has offloadiing in place as prescribed N/A Experienced any changes in pain level or No management Pain Scale: 0-10 Numeric Is Patient Pain Free? Yes - Nurse 1 - General Ulcer Measurement Start: 01/13/25 14:32 Freq: Status: Active Protocol: Activity Type Activity Date Activity User E-sign Co-sign Detail Recorded Client Recorded Date Recorded By Document 01/15/25 10:38 [id number] 01/15/25 10:39 RB 01/15/25 10:38 Wound Center Nurse 1 #1 left med breast -Combined with other wound No -Current Size (cm) - Length 0 -Current Size (cm) - Width 0 -Current Size (cm) - Depth 0 -Total Square Cm 0 -Photo Taken Yes -Epithelialization Large 67-100% - Nurse 2 - General Ulcer CM Notes Start: 01/13/25 14:32 Freq: Status: Active Protocol: Activity Type Activity Date Activity User E-sign Co-sign Detail Recorded Client Recorded Date Recorded By Document 01/15/25 11:03 [id number] 01/15/25 11:05 01/15/25 11:03 Wound Center Nurse 2 -Time 11:04 -Correct Patient Yes -Correct Side, Site, Position Yes -Correct Procedure No -Procedure Performed No -Tunneling No -Undermining/Tunneling No -Circular Undermining No -Wound/Ulcer Outcome Healed- Epithelialized -Foul Odor after Cleansing No -Bioengineered Tissue No -Bleeding Controlled with NA -Offloading No Pain Scale: 0-10 Numeric Is Patient Pain Free? Yes WC - Nurse 3 - General Ulcer D/C NN Start: 01/13/25 14:32 Freq: Status: Active Protocol: Activity Type Activity Date Activity User E-sign Co-sign Detail Recorded Client Recorded Date Recorded By Document 01/15/25 11:19 [id number] 01/15/25 11:19 Document 01/15/25 12:46 PR [id number] 01/15/25 12:46 PR 01/15/25 01/15/25 11:19 12:46 Pain Scale: 0-10 Numeric Is Patient Pain Free? Yes Yes WC - Visit Discharge Discharge Condition Stable Stable Ambulatory Status Ambulatory Ambulatory Transportation Private Auto Private Auto Medication Reconcilliation completed & No provided to patient/care provider Clinical Summary of Care Provided Yes Notes: PT IS HEALED Assessment/Plan Assessment/Plan (1) Status post incision and drainage: CODE(S): Z98.890 - Other specified postprocedural states (2) Left breast abscess: CODE(S): N61.1 - Abscess of the breast and nipple (3) Type 2 diabetes mellitus: CODE(S): E11.9 - Type 2 diabetes mellitus without complications (4) Surgical wound, non healing: CODE(S): T81.89XA - Other complications of procedures, not elsewhere classified, initial encounter (5) Morbid obesity: CODE(S): E66.01 - Morbid (severe) obesity due to excess calories (6) Cystic acne: CODE(S): L70.0 - Acne vulgaris PLAN: Plan Healed. No debridement completed today. No acute concerns reported. Moisturize area adequately, cover with Adaptic and gauze for 2 weeks and then stop. She was advised to call with any questions or concerns. Discharge from the wound center. This note was generated with [employer] software. It may contain incorrect words, spelling, and punctuation that were not noted in checking the note before signing.
--- NOTE | 2025-01-19 08:49 | WC ---
PHOTO 01/15/25 LEFT BREAST
== END 2025-01-27 08:57 | disposition home or self-care (01) ==
LOC: WC 10:09
PROVIDERS: Visit Provider Internal Medicine
DX: Z09 Encounter for follow-up examination after completed treatment for conditions other than malignant neoplasm (principal); E66.01 Morbid (severe) obesity due to excess calories; Z68.43 Body mass index [BMI] 50.0-59.9, adult; E11.9 Type 2 diabetes mellitus without complications; Z79.4 Long term (current) use of insulin; Z79.899 Other long term (current) drug therapy; L70.0 Acne vulgaris; Z79.85 Long-term (current) use of injectable non-insulin antidiabetic drugs
CPT/HCPCS: 99213; G0463